=== PATIENT | female | born 2000 | race Caucasian/White ===

== ENCOUNTER → 2018-01-09 09:16 | Outpatient (CLI) | payer OTHER, SELFPAY ==
--- NOTE | 2018-01-09 09:20 | US_ITS ---
US gallbladder Ordering Physician: Luis Hope MD Patient Age: 17 years: Female HISTORY: ITS.REASON: right upper quad pain Abdominal pain. TECHNIQUE: Ultrasound right upper quadrant. COMPARISON :October 2015 ultrasound RUQ FINDINGS Pancreas unremarkable. But Not well seen are seen obscured Liver. No focal lesions. No biliary ductal dilatation. Common duct normal diameter. Portal vein normal flow direction in size. Right kidney. Normal appearance to 0.6 cm length. Gallbladder. Normal size. No gallstones. WNL. Today's study is compared to October 2015. No significant interval change IMPRESSION Unremarkable right upper quadrant ultrasound. No gallstones. Normal anatomy. IMPRESSION:
== END ==
PROVIDERS: Visit Provider Surgery
DX: R10.11 Right upper quadrant pain (principal)
CPT/HCPCS: 76705

== ENCOUNTER → 2018-01-23 09:45 | Outpatient (CLI) | payer OTHER, SELFPAY ==
--- NOTE | 2018-01-23 09:47 | NM_ITS ---
NM hepatobiliary w pharm HISTORY: Right upper quadrant quadrant pain ITS.REASON: right upper quad pain ORDERING PHYSICIAN: Luis Hope MD PATIENT AGE: 17 years COMPARISON: None DOSE: 10:20 am 8.48 [facility] tc choletec injected into rt ant Fatty Meal: Ensure FINDINGS: Homogeneous activity is present within the hepatic parenchyma. Activity is present in the gallbladder by 15 minutes. Activity is present in the small bowel by 15 minutes. The gallbladder ejection fraction is calculated to be 18% The patient did not report pain or other symptoms during the fatty meal. IMPRESSION: 1. No evidence of common or cystic duct obstruction. 2. Low gallbladder ejection fraction of 18% with fatty meal
== END ==
PROVIDERS: Visit Provider Surgery
DX: R10.11 Right upper quadrant pain (principal)
CPT/HCPCS: 78227; A9537

== ENCOUNTER → 2018-02-26 16:12 | Outpatient (CLI) | payer OTHER, SELFPAY ==
[2018-02-26 16:46] LABS: Urine Pregnancy, HCG Qual. Negative (Negative)
[2018-02-26 16:47] LABS: Basophils % 0.5 % (0.1-2.0); Eosinophils # 0.2 K/mm3 (0.0-0.4); Eosinophils % 2.2 % (0.1-12.0); Hemoglobin 12.9 g/dL (12.2-16.2); Lymphocytes # 2.4 K/mm3 (0.7-4.5); Lymphocytes % 32.4 K/mm3 (10-50); Mean Corpuscular HGB Conc 33.1 g/dL (31.8-35.4); Mean Corpuscular Hemoglobin 28.7 pg (27.0-31.2); Mean Corpuscular Volume 86.7 fl (81-99); Mean Platelet Volume 8.1 fl (7.4-10.4); Monocytes # 0.3 K/mm3 (0.1-1.0); Monocytes % 4.2 % (1.7-9.3); Neutrophils # 4.4 K/mm3 (1.8-7.8); Neutrophils % 60.7 % (37.0-80.0); Platelet Count 390 K/mm3 (142-424); Red Cell Distribution Width 13.3 % (11.5-17.5); White Blood Count 7.3 K/mm3 (4.5-13.0)
[2018-02-26 17:31] LABS: Alanine Aminotransferase 16 U/L (12-78); Albumin Level 4.6 gm/dL (3.4-5.0); Albumin/Globulin Ratio 1.1 (1.1-1.8); Alkaline Phosphatase 92 U/L (46-116); Anion Gap 11.8 mEq/L (5-15); Aspartate Amino Transferase 9 U/L (15-37); Bilirubin,Total 0.4 mg/dL (0.2-1.0); Blood Urea Nitrogen 4 mg/dL (7-18); Calcium 9.8 mg/dL (8.5-10.1); Carbon Dioxide 28 mmol/L (21.0-32.0); Chloride 106 mmol/L (98-107); Creatinine,Serum 0.64 mg/dL (0.55-1.02); Estimated Glomerular Filt Rate 120 ml/min (>60); GFR (African American) 145 ML/MIN (>60); Globulin 4.2 gm/dl (1.3-3.2); Glucose 100 mg/dL (74-106); Potassium 3.8 mmoL/L (3.5-5.1); Sodium 142 mmol/L (136-145); Total Protein,Serum 8.8 gm/dL (6.4-8.2)
== END ==
PROVIDERS: PCP Surgery; Visit Provider Surgery
DX: K82.8 Other specified diseases of gallbladder (principal)
CPT/HCPCS: 36415; 80053; 81025; 85025